=== PATIENT | male | born 1980 | race Asian ===

== ENCOUNTER 2019-03-19 08:27 | Emergency (ER) | payer OTHER ==
[~2019-03-19] VITALS: Ht 170.2 cm; Wt 111.1 kg
[2019-03-19 08:39] VITALS: TEMP 97.5
[2019-03-19 09:12] LABS: PLATELET COUNT 244 K/uL (142-355)
[2019-03-19 09:19] LABS: POTASSIUM 3.5 mmol/L (3.6-5.2)
[2019-03-19 09:46] VITALS: BP 172/77
== END 2019-03-19 09:47 | disposition home or self-care (01) ==
LOC: ED 08:27
PROVIDERS: Hospitalist
PROC: 2Y41X5Z Packing of Nasal Region using Packing Material (ICD-10-PCS; principal; 2019-03-19)
DX: R04.0 Epistaxis (principal); I10 Essential (primary) hypertension
CPT/HCPCS: 80048; 85027; 85610; 85730; 93005; 96374; 99284; J2405; J7040

== ENCOUNTER 2020-10-14 09:44 | Emergency (ER) | payer OTHER ==
[~2020-10-14] VITALS: Ht 170.2 cm; Wt 111.1 kg
[2020-10-14 09:58] VITALS: TEMP 97.3
[2020-10-14 10:41] LABS: PLATELET COUNT 263 K/uL (142-355)
[2020-10-14 10:44] LABS: POTASSIUM 3.5 mmol/L (3.6-5.2)
[2020-10-14 12:48] VITALS: BP 191/127
== END 2020-10-14 12:49 | disposition home or self-care (01) ==
LOC: ED 09:44
PROVIDERS: Emergency Medicine
DX: I10 Essential (primary) hypertension (principal); I51.7 Cardiomegaly; R73.9 Hyperglycemia, unspecified
CPT/HCPCS: 80053; 80307; 81000; 83880; 84484; 85027; 93005; 99283